=== PATIENT | female | born 1980 | race African-American/Black ===

== ENCOUNTER 2018-01-08 07:35 | Emergency (ER) | payer SELFPAY | END 2018-01-08 08:30 | disposition home or self-care (01) | LOC: ER 07:35 | DX: Z21 Asymptomatic human immunodeficiency virus [HIV] infection status (principal); Z76.0 Encounter for issue of repeat prescription; J45.909 Unspecified asthma, uncomplicated; F10.10 Alcohol abuse, uncomplicated; Z98.51 Tubal ligation status; Z88.0 Allergy status to penicillin; Z88.5 Allergy status to narcotic agent | CPT/HCPCS: 99281 ==

== ENCOUNTER 2018-01-10 10:29 | Emergency (ER) | payer SELFPAY ==
[2018-01-10 10:51] LABS: BILIRUBIN,URINE NEGATIVE (NEG); CLARITY,URINE CLEAR; COLOR,URINE YELLOW; GLUCOSE,URINE NEGATIVE (NEG); NITRITE,URINE NEGATIVE (NEG); PH,URINE 6.5; PROTEIN,URINE NEGATIVE (NEG-TRACE); UROBILINOGEN,URINE 0.2 mg/dL (0.2 mg/dL)
[2018-01-10 10:53] LABS: NEG OBC UR NEG; POS OBC UR POS; U PREG PATIENT NEGATIVE (NEG)
[2018-01-10 10:58] LABS: ADD MAN DIFF? NO
[2018-01-10 11:00] LABS: SQUAMOUS EPITHELIAL CELL,UR MOD /LPF
[2018-01-10 11:01] LABS: BACTERIA,URINE FEW /HPF (0-FEW); RBC,URINE OCC /HPF (0-2)
[2018-01-10 11:02] LABS: BASO % 0 % (0-3); EOS % 0 % (0-3); HEMATOCRIT 36.5 % (36.0-47.0); HEMOGLOBIN 13.1 g/dL (12.0-15.5); LYMPH # 1.1 x10^3/uL (1.0-4.8); LYMPH % 26 % (24-48); MEAN CORPUSCULAR HEMOGLOBIN 36 pg (25-35); MEAN CORPUSCULAR HGB CONC 36 g/dL (31-37); MEAN CORPUSCULAR VOLUME 99 fL (79-100); MONO # 0.4 x10^3/uL (0.0-1.1); MONO % 10 % (0-9); NEUT # 2.7 x10^3uL (1.8-7.7); NEUT % 63 % (31-73); PLATELET COUNT 188 x10^3/uL (140-400); RED BLOOD COUNT 3.68 x10^6/uL (3.50-5.40); RED CELL DISTRIBUTION WIDTH 12.3 % (11.5-14.5); WHITE BLOOD COUNT 4.2 x10^3/uL (4.0-11.0)
[2018-01-10 11:11] LABS: ANION GAP 12 (6-14); BLOOD UREA NITROGEN 6 mg/dL (7-20); BUN/CREATININE RATIO 10 (6-20); CALCIUM 8.9 mg/dL (8.5-10.1); CARBON DIOXIDE 22 mmol/L (21-32); CHLORIDE 95 mmol/L (98-107); CREATININE 0.6 mg/dL (0.6-1.0); GFR 137.7; GLUCOSE 118 mg/dL (70-99); POTASSIUM 3.1 mmol/L (3.5-5.1); SODIUM 129 mmol/L (136-145)
[2018-01-10 11:17] LABS: ALBUMIN 3.8 g/dL (3.4-5.0); ALK PHOS 55 U/L (46-116); ALT (SGPT) 32 U/L (14-59); AST (SGOT) 28 U/L (15-37); LIPASE 98 U/L (73-393); TOTAL BILIRUBIN 0.5 mg/dL (0.2-1.0); TOTAL PROTEIN 7.8 g/dL (6.4-8.2)
[2018-01-10] MEDS: LIDO:MAALOX 1:1 20 ML SINGLE DOSE. SWSW (12:18)
== END 2018-01-10 12:56 | disposition home or self-care (01) ==
LOC: ER 10:29
DX: K21.9 Gastro-esophageal reflux disease without esophagitis (principal); R11.2 Nausea with vomiting, unspecified; J45.909 Unspecified asthma, uncomplicated; F10.10 Alcohol abuse, uncomplicated; F17.200 Nicotine dependence, unspecified, uncomplicated; Z98.51 Tubal ligation status; Z88.5 Allergy status to narcotic agent; Z88.0 Allergy status to penicillin
CPT/HCPCS: 36415; 71046; 80053; 81001; 81025; 83690; 85025; 87086; 93005; 99285-25

== ENCOUNTER 2018-04-14 01:55 | Emergency (ER) | payer SELFPAY ==
[2018-01-10 12:20] VITALS: BP 139/79
[~2018-04-14 01:55] MED LIST: OMEP20TA63 PO
== END 2018-04-14 02:00 | disposition left against medical advice (07) ==
LOC: ER 01:55
DX: M79.642 Pain in left hand (principal); Z53.21 Procedure and treatment not carried out due to patient leaving prior to being seen by health care provider

== ENCOUNTER 2018-08-07 02:29 | Emergency (ER) | payer SELFPAY ==
[~2018-08-07] VITALS: Ht 167.6 cm; Wt 72.6 kg
[2018-08-07] MEDS ORDERED: FAMOTIDINE 20 MG/2 ML VIAL IVP ONE (03:00)
[2018-08-07] MEDS ORDERED: IV NORMAL SALINE 1000ML BAG 1,000 ML IV ONE ×2 (03:00)
[2018-08-07] MEDS ORDERED: ONDANSETRON PF 4 MG/2 ML VIAL. ONE (03:05)
[2018-08-07 03:07] LABS: BASO % 1 % (0-3); EOS % 1 % (0-3); HEMOGLOBIN 14.2 g/dL (12.0-15.5); LYMPH # 1.5 x10^3/uL (1.0-4.8); LYMPH % 44 % (24-48); MEAN CORPUSCULAR HEMOGLOBIN 36 pg (25-35); MEAN CORPUSCULAR HGB CONC 36 g/dL (31-37); MEAN CORPUSCULAR VOLUME 100 fL (79-100); MONO # 0.4 x10^3/uL (0.0-1.1); MONO % 11 % (0-9); NEUT # 1.5 x10^3uL (1.8-7.7); NEUT % 43 % (31-73); PLATELET COUNT 163 x10^3/uL (140-400); RED BLOOD COUNT 3.99 x10^6/uL (3.50-5.40); RED CELL DISTRIBUTION WIDTH 12.3 % (11.5-14.5); WHITE BLOOD COUNT 3.4 x10^3/uL (4.0-11.0)
[2018-08-07 03:10] LABS: BILIRUBIN,URINE NEGATIVE (NEG); CLARITY,URINE CLEAR; COLOR,URINE YELLOW; NITRITE,URINE NEGATIVE (NEG); PH,URINE 6.5; PROTEIN,URINE NEGATIVE (NEG-TRACE); UROBILINOGEN,URINE 0.2 mg/dL (0.2 mg/dL)
[2018-08-07] MEDS ORDERED: ONDANSETRON PF 4 MG/2 ML VIAL. IV ONE (03:15)
[2018-08-07 03:24] LABS: BACTERIA,URINE MODERATE /HPF (0-FEW); RBC,URINE 0 /HPF (0-2); SQUAMOUS EPITHELIAL CELL,UR MANY /LPF
[2018-08-07 03:25] LABS: TRICHOMONAS,URINE PRESENT
[2018-08-07 03:28] LABS: ALBUMIN 3.6 g/dL (3.4-5.0); ALBUMIN/GLOBULIN RATIO 0.8 (1.0-1.7); CALCIUM 9.1 mg/dL (8.5-10.1); CREATININE 0.7 mg/dL (0.6-1.0); GFR 115.2; POTASSIUM 3.7 mmol/L (3.5-5.1); TOTAL BILIRUBIN 0.5 mg/dL (0.2-1.0); TOTAL PROTEIN 8.2 g/dL (6.4-8.2)
[2018-08-07 03:29] LABS: AMPHETAMINE/METHAMPHETAMINE NEG (NEG); BARBITURATES NEG (NEG); BENZODIAZEPINES NEG (NEG); CANNABINOIDS POS (NEG); COCAINE NEG (NEG); METHADONE NEG (NEG); OPIATES NEG (NEG); PHENCYCLIDINE POS (NEG)
[2018-08-07 03:51] VITALS: BP 141/79
--- NOTE | 2018-08-07 05:31 | PHYS DOC ---
Past Medical History Past Medical History: Asthma, Diabetes-Type I, HIV, Seizure Past Surgical History: Tubal ligation Alcohol Use: Heavy Drug Use: Cocaine, Marijuana, Other Adult General Chief Complaint Chief Complaint: NAUSEA/VOMITING/DIARRHA HPI HPI Patient is a 37 year old -[place] female with history of HIV and polysubstance abuse who presents with reports of intermittent episodes nausea vomiting and diarrhea over the past 2 days. Reports occasional abdominal pain. No prior abdominal surgeries. She reports feeling dizzy and lightheaded. No fever chills or sweats. Patient's noncompliant with medications.[] Review of Systems Review of Systems View symptoms as per history of present illness. All other review symptoms are negative. All other systems were reviewed and found to be within normal limits, except as documented in this note. Current Medications Current Medications Current Medications Medications (Trade) Dose Ordered Sig/Misty Start Time Stop Time Status Last Admin Dose Admin Famotidine (Pepcid Vial) 20 mg 1X ONCE 08/07/18 03:00 08/07/18 03:02 DC 08/07/18 03:13 20 MG Ondansetron HCl (Zofran) 4 mg STK-MED ONCE 08/07/18 03:05 08/07/18 03:07 DC Sodium Chloride 1,000 ml @ 1,000 mls/hr 1X ONCE 08/07/18 03:00 08/07/18 03:20 DC 08/07/18 03:03 1,000 MLS/HR Allergies Allergies Allergies Coded Allergies Type Severity Reaction Last Updated Verified codeine Allergy Intermediate hives 01/08/18 Yes Penicillins Adverse Reaction Intermediate vomiting 01/08/18 Yes Physical Exam Physical Exam Constitutional: Well developed, well nourished, no acute distress, non-toxic appearance. [] HENT: Normocephalic, atraumatic, bilateral external ears normal, oropharynx moist, no oral exudates, nose normal. [] Eyes: PERRLA, EOMI, conjunctiva normal, no discharge. [] Neck: Normal range of motion, no tenderness, supple, no stridor. [] Cardiovascular:Heart rate regular rhythm, no murmur [] Lungs & Thorax: Bilateral breath sounds clear to auscultation [] Abdomen: Bowel sounds normal, soft, no tenderness, no masses, no pulsatile masses. [] Extremities: No tenderness, no edema. [] Neurologic: Alert and oriented X 3, normal motor function, normal sensory function, no focal deficits noted. [] Psychologic: Affect normal, judgement normal, mood normal. [] Current Patient Data Vital Signs Vital Signs Date Time Temp Pulse Resp B/P (MAP) Pulse Ox O2 Delivery O2 Flow Rate FiO2 08/07/18 03:51 77 141/79 (99) Room Air 08/07/18 02:30 97.5 16 99 97.5 Lab Values Laboratory Tests Test 08/07/18 02:35 08/07/18 02:38 08/07/18 02:45 08/07/18 03:08 Urine Collection Type Unknown Urine Color Yellow Urine Clarity Clear Urine pH 6.5 Urine Specific [place] <=1.005 Urine Protein Negative mg/dL (NEG-TRACE) Urine Glucose (UA) Negative mg/dL (NEG) Urine Ketones (Stick) Negative mg/dL (NEG) Urine Blood Negative (NEG) Urine Nitrite Negative (NEG) Urine Bilirubin Negative (NEG) Urine Urobilinogen Dipstick 0.2 mg/dL (0.2 mg/dL) Urine Leukocyte Esterase Small (NEG) Urine RBC 0 /HPF (0-2) Urine WBC 1-4 /HPF (0-4) Urine Squamous Epithelial Cells Many /LPF Urine Bacteria Moderate /HPF (0-FEW) Urine Trichomonas Present Urine Opiates Screen Neg (NEG) Urine Methadone Screen Neg (NEG) Urine Barbiturates Neg (NEG) Urine Phencyclidine Screen Pos (NEG) Urine Amphetamine/Methamphetamine Neg (NEG) Urine Benzodiazepines Screen Neg (NEG) Urine Cocaine Screen Neg (NEG) Urine Cannabinoids Screen Pos (NEG) Urine Ethyl Alcohol Neg (NEG) POC Urine HCG, Qualitative Hcg negative (Negative) White Blood Count 3.4 x10^3/uL (4.0-11.0) L Red Blood Count 3.99 x10^6/uL (3.50-5.40) Hemoglobin 14.2 g/dL (12.0-15.5) Hematocrit 40.0 % (36.0-47.0) Mean Corpuscular Volume 100 fL (79-100) Mean Corpuscular Hemoglobin 36 pg (25-35) H Mean Corpuscular Hemoglobin Concent 36 g/dL (31-37) Red Cell Distribution Width 12.3 % (11.5-14.5) Platelet Count 163 x10^3/uL (140-400) Neutrophils (%) (Auto) 43 % (31-73) Lymphocytes (%) (Auto) 44 % (24-48) Monocytes (%) (Auto) 11 % (0-9) H Eosinophils (%) (Auto) 1 % (0-3) Basophils (%) (Auto) 1 % (0-3) Neutrophils # (Auto) 1.5 x10^3uL (1.8-7.7) L Lymphocytes # (Auto) 1.5 x10^3/uL (1.0-4.8) Monocytes # (Auto) 0.4 x10^3/uL (0.0-1.1) Eosinophils # (Auto) 0.0 x10^3/uL (0.0-0.7) Basophils # (Auto) 0.0 x10^3/uL (0.0-0.2) Sodium Level 136 mmol/L (136-145) Potassium Level 3.7 mmol/L (3.5-5.1) Chloride Level 100 mmol/L (98-107) Carbon Dioxide Level 23 mmol/L (21-32) Anion Gap 13 (6-14) Blood Urea Nitrogen 6 mg/dL (7-20) L Creatinine 0.7 mg/dL (0.6-1.0) Estimated GFR (Cockcroft-Gault) 115.2 BUN/Creatinine Ratio 9 (6-20) Glucose Level 90 mg/dL (70-99) Calcium Level 9.1 mg/dL (8.5-10.1) Total Bilirubin 0.5 mg/dL (0.2-1.0) Aspartate Amino Transferase (AST) 62 U/L (15-37) H Alanine Aminotransferase (ALT) 78 U/L (14-59) H Alkaline Phosphatase 74 U/L (46-116) Total Protein 8.2 g/dL (6.4-8.2) Albumin 3.6 g/dL (3.4-5.0) Albumin/Globulin Ratio 0.8 (1.0-1.7) L Lipase 122 U/L (73-393) Glucose (Fingerstick) 89 mg/dL (70-99) Laboratory Tests 08/07/18 02:45 Laboratory Tests 08/07/18 02:45 EKG EKG [] Radiology/Procedures Radiology/Procedures [] Course & Med Decision Making Course & Med Decision Making Pertinent Labs and Imaging studies reviewed. (See chart for details) [No vomiting in ED, soft, nontender. Work reviewed and is reassuring. Recommend supportive care PCP follow-up. Return precautions reviewed. Patient verbalizes understanding agreement discharge instructions prior to departure.] Dragon Disclaimer Dragon Disclaimer This electronic medical record was generated, in whole or in part, using a voice recognition dictation system. Departure Departure Impression: Primary Impression: Phencyclidine (PCP) use disorder, moderate Additional Impression: Nausea and vomiting Disposition: HOME, SELF-CARE Condition: GOOD Patient Instructions: Nausea and Vomiting, [id number] Additional Instructions: You were evaluated in the ED in the ED for nausea and vomiting. Lab work was performed and is nondiagnostic. Please go home and rest, take Zofran as needed for vomiting. Drink clear liquids only for the next few hours then gradually increase to a bland diet. Avoid future drug use. Problem Qualifiers JANNETH LANDIN DO Aug 07, 2018 05:31
== END 2018-08-07 03:50 | disposition home or self-care (01) ==
LOC: ER 02:29
DX: F16.99 Hallucinogen use, unspecified with unspecified hallucinogen-induced disorder (principal); R11.2 Nausea with vomiting, unspecified; R42 Dizziness and giddiness; R10.9 Unspecified abdominal pain; J45.909 Unspecified asthma, uncomplicated; E10.9 Type 1 diabetes mellitus without complications; F10.20 Alcohol dependence, uncomplicated; Y90.9 Presence of alcohol in blood, level not specified; Z98.51 Tubal ligation status; Z91.14 Patient's other noncompliance with medication regimen; Z88.5 Allergy status to narcotic agent; Z88.0 Allergy status to penicillin
CPT/HCPCS: 36415; 80053; 80307; 81001; 81025; 82962; 83690; 85025; 87086; 96361; 96374; 96375; 99283; J2405; J3490; J7030

== ENCOUNTER 2020-04-02 20:35 | Emergency (ER) | payer SELFPAY ==
[~2020-04-02] VITALS: Ht 167.6 cm; Wt 77.3 kg
[2020-04-02 20:47] VITALS: BP 127/75
[2020-04-02] MEDS ORDERED: CLINDAMYCIN HCL 150 MG CAPSULE. PO ONE (21:30)
[2020-04-02] MEDS ORDERED: fentaNYL PF VIAL 100 MCG/2 ML VIAL IM ONE (21:30)
--- NOTE | 2020-04-02 22:02 | PHYS DOC ---
Past Medical History Past Medical History: Anxiety, Asthma, Depression, Diabetes-Type II Past Surgical History: Tubal ligation Smoking Status: Current Every Day Smoker Additional Information: Smoked for 22 years, smoke 1/2 pack per day Alcohol Use: Heavy Additional Information: Pt verbalized she drinks daily Drug Use: Cocaine, Marijuana, Other Social History Narrative: occasional weed General Adult EDM: Chief Complaint: MULTIPLE COMPLAINTS HPI: HPI: Patient is a 39 year old female who presents to the ED today complaining of 10 out of 10 left upper gum dental pain with bleeding that began today. Patient is also complaining of diarrhea with generalized abdominal and subjective fever since this morning. Patient is hysterical, she is on the floor. She is thrashing around. Review of Systems: Review of Systems: Constitutional: Reports subjective fevers Eyes: Denies change in visual acuity. [] HENT: Reports left upper gum dental pain with bleeding. Denies nasal congestion or sore throat. [] Respiratory: Denies cough or shortness of breath. [] Cardiovascular: Denies chest pain or edema. [] GI: Reports diarrhea. Reports generalized abdominal pain. Denies abdominal pain, nausea, vomiting, bloody stools : Denies dysuria. [] Musculoskeletal: Denies back pain or joint pain. [] Integument: Denies rash. [] Neurologic: Denies headache, focal weakness or sensory changes. [] Endocrine: Denies polyuria or polydipsia. [] Lymphatic: Denies swollen glands. [] Psychiatric: Denies depression or anxiety. [] Heart Score: Risk Factors: Risk Factors: DM, Current or recent (<one month) smoker, HTN, HLP, family history of CAD, obesity. Risk Scores: Score 0 - 3: 2.5% MACE over next 6 weeks - Discharge Home Score 4 - 6: 20.3% MACE over next 6 weeks - Admit for Clinical Observation Score 7 - 10: 72.7% MACE over next 6 weeks - Early Invasive Strategies Current Medications: Current Medications Medications (Trade) Dose Ordered Sig/Misty Start Time Stop Time Status Last Admin Dose Admin Clindamycin HCl (Cleocin) 300 mg 1X ONCE 04/02/20 21:30 04/02/20 21:31 DC 04/02/20 21:40 300 MG Fentanyl Citrate (Fentanyl 2ml Vial) 50 mcg 1X ONCE 04/02/20 21:30 04/02/20 21:31 DC 04/02/20 21:43 50 MCG Allergies: Allergies: Allergies Coded Allergies Type Severity Reaction Last Updated Verified codeine Allergy Intermediate hives 01/08/18 Yes Penicillins Adverse Reaction Intermediate vomiting 01/08/18 Yes Physical Exam: PE: Constitutional: Well developed, well nourished, no acute distress, non-toxic appearance. [] HENT: Normocephalic, atraumatic, bilateral external ears normal, oropharynx moist, no oral exudates, nose normal. Left upper gums with gingivitis, missing multiple teeth. Incision on the left upper gum has dental caries Eyes: PERRLA, EOMI, conjunctiva normal, no discharge. [] Neck: Normal range of motion, no tenderness, supple, no stridor. [] Cardiovascular:Heart rate regular rhythm, no murmur [] Lungs & Thorax: Bilateral breath sounds clear to auscultation [] Abdomen: Bowel sounds normal, soft, no tenderness, no masses, no pulsatile masses. [] Skin: Warm, dry, no erythema, no rash. [] Back: No tenderness, no CVA tenderness. [] Extremities: No tenderness, no cyanosis, no clubbing, ROM intact, no edema. [] Neurologic: Alert and oriented X 3, normal motor function, normal sensory function, no focal deficits noted. [] Psychologic: Thrashing around in bed, flat affect, Current Patient Data: Vital Signs: Vital Signs Date Time Temp Pulse Resp B/P (MAP) Pulse Ox O2 Delivery O2 Flow Rate FiO2 04/02/20 21:43 24 100 Room Air 04/02/20 20:47 98.1 76 127/75 (92) 98.1 EKG: EKG: [] Radiology/Procedures: Radiology/Procedures: [] Course & Med Decision Making: Course & Med Decision Making Pertinent Labs and Imaging studies reviewed. (See chart for details) This is a 39-year-old female patient presenting to the ED today with left upper gum pain and bleeding consistent with gingivitis. Will be discharged with clindamycin and Peridex. Also also complaining of fever subjective in nature diarrhea with abdominal pain. Will be tested for COVID19. Patient has been hysterical, rolling on the ground in her room for no good reason. History of PCP and could be intoxicated right now Pretehi Disclaimer: Preethi Disclaimer: This electronic medical record was generated, in whole or in part, using a voice recognition dictation system. Departure Departure Impression: Primary Impression: Gingivitis Additional Impressions: Dental caries Person under investigation for COVID-19 Diarrhea Qualified Codes: R19.7 - Diarrhea, unspecified Fever Qualified Codes: R50.9 - Fever, unspecified Disposition: 01 HOME, SELF-CARE Condition: STABLE Referrals: NO PCP (PCP) follow up with your dentist as soon as possible Patient Instructions: Dental Pain, Gingivitis, [id number] Additional Instructions: Please follow-up with a dentist for your dental pain. Use the prescribed medications as ordered. We tested you for COVID19. We will call you next week with results. In the meantime quarantine yourself. Scripts Diclofenac Potassium (DICLOFENAC POTASSIUM) 50 Mg Tablet 1 TAB PO BID, #20 TAB 1 Refill Prov: BLAKE ABEL APRN 04/02/20 Chlorhexidine Gluconate (PERIDEX) 15 Ml Mouthwash 15 ML PO BID for 30 Days, #946 ML 0 Refills Prov: BLAKE ABEL APRN 04/02/20 Clindamycin Hcl (CLINDAMYCIN HCL) 300 Mg Capsule 1 CAP PO TID, #21 CAP Prov: BLAKE ABEL APRN 04/02/20 Justicifation of Admission Dx: Justifications for Admission: Justification of Admission Dx: N/A BLAKE ABEL APRN Apr 02, 2020 22:02
[2020-04-02] MEDS ORDERED: CHLO15MO2 PO (22:11)
[2020-04-02] MEDS ORDERED: CLIN300C8 PO (22:11)
[2020-04-02] MEDS ORDERED: DICL50TA2 PO (22:12)
== END 2020-04-02 22:41 | disposition home or self-care (01) ==
LOC: ER 20:35
DX: K05.10 Chronic gingivitis, plaque induced (principal); Z20.828 Contact with and (suspected) exposure to other viral communicable diseases; K08.89 Other specified disorders of teeth and supporting structures; R19.7 Diarrhea, unspecified; R50.9 Fever, unspecified; F41.9 Anxiety disorder, unspecified; J45.909 Unspecified asthma, uncomplicated; F32.9 Major depressive disorder, single episode, unspecified; E11.9 Type 2 diabetes mellitus without complications; F17.200 Nicotine dependence, unspecified, uncomplicated; F12.90 Cannabis use, unspecified, uncomplicated; F14.90 Cocaine use, unspecified, uncomplicated; F10.10 Alcohol abuse, uncomplicated; Z88.0 Allergy status to penicillin; Z98.51 Tubal ligation status; Z88.5 Allergy status to narcotic agent
CPT/HCPCS: 96372; 99283; J3010; U0003

== ENCOUNTER 2021-01-02 22:44 | Emergency (ER) | payer SELFPAY ==
[~2021-01-02 22:44] MED LIST changes: +CHLO15MO2 PO; +CLIN300C9 PO; +DICL50TA2 PO
[2021-01-02 22:55] VITALS: BP 131/77
== END 2021-01-03 01:55 | disposition left against medical advice (07) ==
LOC: ER 22:44
DX: S60.459A Superficial foreign body of unspecified finger, initial encounter (principal); Z53.21 Procedure and treatment not carried out due to patient leaving prior to being seen by health care provider; W49.04XA Ring or other jewelry causing external constriction, initial encounter; Y93.89 Activity, other specified; Y92.89 Other specified places as the place of occurrence of the external cause; Y99.8 Other external cause status